=== PATIENT | female | born 2000 | race Two or more races ===

== ENCOUNTER 2024-08-08 12:33 | Emergency (ER) | payer OTHER ==
[~2024-08-08] VITALS: Ht 160 cm; Wt 68.0 kg
[2024-08-08 13:27] LABS: BASO % 0.9 % (0.1-1.2); EOS # 0.16 (0.04-0.54); EOS % 2.3 % (0.7-7.0); HEMATOCRIT 34.1 % (34.1-44.9); HEMOGLOBIN 11.9 g/dL (11.2-15.7); LYMPH # 1.37 (1.18-3.74); LYMPH % 20.1 % (19.3-53.1); MEAN CORPUSCULAR HEMOGLOBIN 27.4 pg (25.6-32.2); MONO # 0.44 (0.24-0.82); MONO % 6.4 % (4.7-12.5); NEUT # 4.79 (1.56-6.13); NEUT % 70.2 % (34.0-71.1); PLATELET COUNT 204 K/uL (163-369); RED BLOOD COUNT 4.34 M/uL (3.93-5.22); RED CELL DISTRIBUTION WIDTH 13.2 % (11.6-14.4)
[2024-08-08 13:53] LABS: URINE APPEARANCE Clear; URINE BILIRRUBIN Negative (NEGATIVE); URINE BLOOD Negative; URINE COLOR Yellow; URINE GLUCOSE Negative (NEGATIVE); URINE KETONE Negative (NEGATIVE); URINE LEUKOCYTE Moderate; URINE NITRATE Negative; URINE PROTEIN Negative (NEGATIVE); URINE UROBILINOGEN 0.2 E.U./dl
[2024-08-08 13:57] LABS: URINE BACTERIA 63.6 uL (0.0-1933); URINE EPITHELIAL CELLS 20.2 uL (0.0-38.8); URINE WBC 53.1 uL (0.0-23.2)
== END 2024-08-08 14:55 | disposition home or self-care (01) ==
LOC: ER 12:46
PROVIDERS: General Practice
DX: O20.8 Other hemorrhage in early pregnancy (principal); Z3A.01 Less than 8 weeks gestation of pregnancy

== ENCOUNTER 2024-11-06 12:29 | Emergency (ER) | payer OTHER ==
[~2024-11-06] VITALS: Ht 160 cm; Wt 69.9 kg
[2024-11-06] MEDS ORDERED: PRENATE DHA SO1 EAC1 PO (12:52)
[2024-11-06 15:58] LABS: URINE APPEARANCE Clear; URINE BILIRRUBIN Negative (NEGATIVE); URINE BLOOD Negative; URINE COLOR Yellow; URINE GLUCOSE Negative (NEGATIVE); URINE KETONE 15 (NEGATIVE); URINE LEUKOCYTE Negative; URINE NITRATE Negative; URINE PROTEIN Negative (NEGATIVE); URINE UROBILINOGEN 0.2 E.U./dl
[2024-11-06 16:05] LABS: BASO % 0.4 % (0.1-1.2); EOS # 0.18 (0.04-0.54); EOS % 2.0 % (0.7-7.0); LYMPH # 1.42 (1.18-3.74); LYMPH % 15.7 % (19.3-53.1); MEAN PLATELET VOLUME 11.90 fl (9.4-12.4); MONO # 0.47 (0.24-0.82); MONO % 5.2 % (4.7-12.5); NEUT # 6.89 (1.56-6.13); NEUT % 76.3 % (34.0-71.1); RED CELL DISTRIBUTION WIDTH 13.1 % (11.6-14.4)
[2024-11-06 16:22] LABS: URINE BACTERIA 605.9 uL (0.0-1933); URINE EPITHELIAL CELLS 34.8 uL (0.0-38.8); URINE WBC 14.4 uL (0.0-23.2)
[2024-11-06 16:35] LABS: URINE CAST 0.00 uL (0.0-1.40); URINE RBC 1.0 uL (0.0-20.8)
== END 2024-11-06 16:38 | disposition home or self-care (01) ==
LOC: ER 12:29
PROVIDERS: General Practice
DX: O26.892 Other specified pregnancy related conditions, second trimester (principal); Z3A.19 19 weeks gestation of pregnancy; Z88.6 Allergy status to analgesic agent; R10.2 Pelvic and perineal pain

== ENCOUNTER 2024-12-23 01:33 | Outpatient (CLI) | payer OTHER ==
[~2024-12-23] VITALS: Ht 160 cm; Wt 71.2 kg
[2024-12-23 01:00] VITALS: BP 101/67
[~2024-12-23 01:33] MED LIST: PRENATE DHA SO1 EAC1 PO
[2024-12-23] MEDS ORDERED: RINGERS SOLUTION,LACTATED 1,000 ML IV SCH (02:30)
[2024-12-23 03:11] LABS: URINE APPEARANCE Cloudy; URINE BILIRRUBIN Negative (NEGATIVE); URINE BLOOD Negative; URINE COLOR Yellow; URINE GLUCOSE Negative (NEGATIVE); URINE KETONE 15 (NEGATIVE); URINE LEUKOCYTE Small; URINE NITRATE Negative; URINE PROTEIN Negative (NEGATIVE); URINE UROBILINOGEN 0.2 E.U./dl
[2024-12-23 03:12] LABS: URINE BACTERIA 1622.3 uL (0.0-1933); URINE EPITHELIAL CELLS 43.2 uL (0.0-38.8); URINE WBC 131.8 uL (0.0-23.2)
[2024-12-23 03:16] LABS: BASO % 0.3 % (0.1-1.2); EOS # 0.15 (0.04-0.54); EOS % 1.6 % (0.7-7.0); LYMPH # 1.71 (1.18-3.74); LYMPH % 18.5 % (19.3-53.1); MEAN PLATELET VOLUME 12.50 fl (9.4-12.4); MONO # 0.59 (0.24-0.82); MONO % 6.4 % (4.7-12.5); NEUT # 6.72 (1.56-6.13); NEUT % 72.6 % (34.0-71.1); RED CELL DISTRIBUTION WIDTH 13.4 % (11.6-14.4)
[2024-12-23 03:21] LABS: URINE CAST 0.87 uL (0.0-1.40); URINE RBC 1.3 uL (0.0-20.8)
[2024-12-23 03:37] LABS: ALT/SGPT 19.0 U/L (12-78); AST/SGOT 13.0 U/L (15-37); BILIRUBIN TOTAL 0.31 mg/dL (0.3-1.2); BUN CREA RATIO 20.0 (7.0-25.0); CREATININE SERUM 0.41 mg/dL (0.55-1.02); GFR 193.99; GLOBULINA 3.4 G/DL (2.4-3.5); GLUCOSE FASTING 71.0 mg/dL (65-100); OSMOLALITY SERUM 276.0 MOSM/KG (275-295)
[2024-12-23 05:07] VITALS: BP 96/64
[2024-12-23 06:46] VITALS: BP 98/66; O2SAT 100
[2024-12-23 11:55] VITALS: BP 100/62
[2024-12-23 15:16] VITALS: BP 94/67; O2SAT 96
[2024-12-23 16:34] VITALS: BP 94/97
== END 2024-12-23 16:34 | disposition home or self-care (01) ==
LOC: OBS/DEL 01:33 → LDR 02:07 → OBS/DEL 02:11
PROVIDERS: ATTEND Specialist
DX: O36.8120 Decreased fetal movements, second trimester, not applicable or unspecified (principal); O26.892 Other specified pregnancy related conditions, second trimester; O60.02 Preterm labor without delivery, second trimester; Z3A.27 27 weeks gestation of pregnancy